=== PATIENT | female | born 2000 | race African-American/Black ===

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

== ENCOUNTER 2020-03-26 20:15 | Emergency (ER) | payer OTHER, MEDICAID ==
[~2020-03-26] VITALS: Ht 160 cm; Wt 63.5 kg
[~2020-03-26 20:15] MED LIST: HEP1I IV; HEPA10004 IJ; PREN-96 PO
[2020-03-26 21:07] LABS: Basophils # (auto) 0.1 10 ^3/uL (0-0.2); Basophils % (auto) 0.5 % (0.0-2.0); Eosinophils # (auto) 0.1 10 ^3/uL (0-0.8); Eosinophils % (auto) 1.1 % (0.0-7.0); Hematocrit 37.2 % (36.0-46.0); Hemoglobin 12.1 g/dL (12.2-16.2); Lymphocytes # (auto) 3.4 10 ^3/uL (0.4-5.4); Lymphocytes % (auto) 29.7 % (10.0-50.0); Mean Corpuscular Hemoglobin 26.7 pg (28.0-32.0); Mean Corpuscular Hgb Conc. 32.6 g/dL (32.0-36.0); Mean Corpuscular Volume 81.8 fL (80.0-100.0); Monocytes # (auto) 1.1 10 ^3/uL (0-1.3); Monocytes % (auto) 9.5 % (0.0-12.0); Neutrophils # (auto) 6.7 10 ^3/uL (1.6-8.6); Neutrophils % (auto) 59.2 % (37.0-80.0); Nucleated Red Blood Cells % 0.1 %; Platelet Count (auto) 219 10^3/uL (140-450); Red Blood Cells 4.54 10^6/uL (4.0-5.20); Red Cell Distribution Width 14.6 % (11.8-14.3); White Blood Cell 11.4 10^3/uL (4.4-10.8)
[2020-03-26 21:13] LABS: INR 0.9 (0.9-1.15); Partial Thromboplastin Time 27.6 sec (23.64-32.05)
[2020-03-26 21:17] LABS: Albumin 2.8 g/dL (3.4-5.0); BUN/Creatinine Ratio 18.5; Calcium 8.4 mg/dL (8.5-10.1); Potassium 3.5 mmol/L (3.5-5.1)
[2020-03-26 21:19] LABS: Bilirubin, Total 0.1 mg/dL (0.2-1.0); Total Protein 6.8 g/dL (6.4-8.2)
[2020-03-26 23:10] VITALS: BP 135/84
== END 2020-03-26 23:19 | disposition home or self-care (01) ==
LOC: ER 20:18
DX: O99.342 Other mental disorders complicating pregnancy, second trimester (principal); F41.9 Anxiety disorder, unspecified; Z3A.16 16 weeks gestation of pregnancy
CPT/HCPCS: 36415; 80053; 84702; 85025; 85379; 85610; 85730; 93005; 93971

== ENCOUNTER 2020-08-01 15:30 | Observation (INO) | payer OTHER, MEDICAID ==
[~2020-08-01] VITALS: Ht 190.5 cm; Wt 73.5 kg
[2020-08-01] MEDS ORDERED: LACTATED RINGER'S 1,000 ML IV ONE (17:05)
[2020-08-01] MEDS: TERBUTALINE SULFATE 1 MG/ML 1ML VIAL SC SCH ×3 (17:15→18:51)
[2020-08-01 17:38] LABS: Urine Bacteria NONE SEEN /hpf (None Seen); Urine Blood Negative /uL (Negative); Urine Mucus FEW (None Seen); Urine Specific Gravity 1.025 (1.001-1.035); Urine WBC 2 /hpf (0 - 5)
== END 2020-08-01 19:53 | disposition home or self-care (01) ==
LOC: LDRP 15:30
PROVIDERS: ADMIT Specialist; ATTEND Specialist
DX: O62.9 Abnormality of forces of labor, unspecified (principal); O26.893 Other specified pregnancy related conditions, third trimester; R51 Headache; R11.0 Nausea; R12 Heartburn; O42.913 Preterm premature rupture of membranes, unspecified as to length of time between rupture and onset of labor, third trimester; O34.63 Maternal care for abnormality of vagina, third trimester; N89.8 Other specified noninflammatory disorders of vagina; O12.03 Gestational edema, third trimester; Z3A.35 35 weeks gestation of pregnancy; Z86.718 Personal history of other venous thrombosis and embolism
CPT/HCPCS: 59025; 81001; 81002; 84112; 94760; 96360; 96361; 96372; G0378; J3105; Q0114

== ENCOUNTER 2024-09-17 17:54 | Emergency (ER) | payer MEDICAID, OTHER ==
[~2024-09-17] VITALS: Ht 160 cm; Wt 68.1 kg
[2024-09-17] MEDS ORDERED: ENOX40IN7 SC (18:12)
[2024-09-17] MEDS ORDERED: MECL-126 PO (18:12)
[2024-09-17 19:36] LABS: Basophils # (auto) 0 10 ^3/uL (0-0.2); Basophils % (auto) 0.2 % (0.0-2.0); Eosinophils # (auto) 0 10 ^3/uL (0-0.8); Eosinophils % (auto) 0.1 % (0.0-7.0); Hematocrit 41.9 % (36.0-46.0); Hemoglobin 13.8 g/dL (12.2-16.2); Lymphocytes # (auto) 1.1 10 ^3/uL (0.4-5.4); Lymphocytes % (auto) 11.3 % (10.0-50.0); Mean Corpuscular Hemoglobin 27.7 pg (28.0-32.0); Mean Corpuscular Hgb Conc. 33.1 g/dL (32.0-36.0); Mean Corpuscular Volume 83.7 fL (80.0-100.0); Monocytes # (auto) 0.7 10 ^3/uL (0-1.3); Monocytes % (auto) 7.4 % (0.0-12.0); Neutrophils # (auto) 7.7 10 ^3/uL (1.6-8.6); Nucleated Red Blood Cells % 0.1 %; Platelet Count (auto) 226 10^3/uL (140-450); Red Cell Distribution Width 14.6 % (11.8-14.3); White Blood Cell 9.5 10^3/uL (4.4-10.8)
[2024-09-17 19:46] LABS: Chloride 106 mmol/L (98-107); Potassium 3.5 mmol/L (3.5-5.1); Sodium 137 mmol/L (136-145)
[2024-09-17 19:47] LABS: Anion Gap 7 (5-15); Carbon Dioxide 24 mmol/L (20-31)
[2024-09-17 19:48] LABS: Calcium 9.8 mg/dL (8.7-10.4)
[2024-09-17 19:52] LABS: Glucose 84 mg/dL (74-106)
[2024-09-17 19:53] LABS: BUN/Creatinine Ratio 12.5 (10.0-20.0); Blood Urea Nitrogen 8 mg/dL (9-23)
[2024-09-17] MEDS: SODIUM CHLORIDE 0.9% 1,000 ML IV ONE (20:02)
[2024-09-17 20:05] VITALS: PULSE 100; RESP 18; O2SAT 98
[2024-09-17] MEDS: ONDANSETRON HCL 4 MG/2 ML VIAL IV ONE (20:07)
[2024-09-17] MEDS: FAMOTIDINE (10MG/ML) 2ML VL IV ONE (20:07)
[2024-09-17] MEDS: ACETAMINOPHEN IV 1000 MG/100ML (10MG/ML) IV STA (20:57)
[2024-09-17 22:30] VITALS: BP 96/43; PULSE 97; RESP 16; TEMP 98.9; O2SAT 98
== END 2024-09-17 22:35 | disposition home or self-care (01) ==
LOC: ER 17:54
DX: O20.8 Other hemorrhage in early pregnancy (principal); R10.2 Pelvic and perineal pain; O21.9 Vomiting of pregnancy, unspecified; Z3A.17 17 weeks gestation of pregnancy; Z79.899 Other long term (current) drug therapy
CPT/HCPCS: 36415; 76805; 80048; 82962; 84702; 85025; 86900; 86901; 96361; 96374; 96375; 99285; J2405; J3490; J7030; J0131